=== PATIENT | male | born 1970 | race Caucasian/White ===

== ENCOUNTER 2018-04-19 06:03 | Emergency (ER) | payer SELFPAY ==
[2018-04-19 06:25] VITALS: TEMP 97.6; BMI 34.7
--- NOTE | 2018-04-19 07:06 | PDOC ---
History of Present Illness - General Chief Complaint: Nausea/Vomiting Stated Complaint: FEVER,VOMITING Time Seen by Provider: 04/19/18 07:04 - History of Present Illness Initial Comments: 04/19/18 07:04 Mr. Herring is a 47 yo male w/ pmh of DM who presents for evaluation of 2 day history of nausea, vomiting, diarrhea with subjective fevers and pain on swallowing. He reports he has recently come up from [facility] 1 week ago and that no one else around him is sick. He takes metformin for his diabetes only. He typically checks his blood glucose daily but left his BGM at home. Denies any sick contacts. The patient denies chest pain, shortness of breath, headache and dizziness. Denies dysuria, frequency, urgency and hematuria. Allergies: NKDA Past History - Past Medical History Allergies/Adverse Reactions: Allergies Allergy/AdvReac Type Severity Reaction Status Date / Time No Known Allergies Allergy Verified 04/19/18 06:20 Home Medications: Ambulatory Orders Linagliptin/Metformin HCl [Jentadueto 2.5 mg-1000 mg Tab] 1 tab PO BID 04/19/18 - Suicide/Smoking/Psychosocial Hx Smoking History: Never smoked Have you smoked in the past 12 months: No Information on smoking cessation initiated: No Hx Alcohol Use: No Drug/Substance Use Hx: No Review of Systems - Review of Systems Comments:: 04/19/18 07:06 GENERAL/CONSTITUTIONAL: +Intermittent fever. No weakness. HEAD, EYES, EARS, NOSE AND THROAT: No change in vision. No ear pain or discharge. No sore throat. CARDIOVASCULAR: No chest pain or shortness of breath RESPIRATORY: No cough, wheezing, or hemoptysis. GASTROINTESTINAL: +N/V/D as described. No constipation. GENITOURINARY: No dysuria, frequency, or change in urination. MUSCULOSKELETAL: No joint or muscle swelling or pain. No neck or back pain. SKIN: No rash NEUROLOGIC: No headache, vertigo, loss of consciousness, or change in strength/ sensation. ENDOCRINE: No increased thirst. No abnormal weight change HEMATOLOGIC/LYMPHATIC: No anemia, easy bleeding, or history of blood clots. ALLERGIC/IMMUNOLOGIC: No hives or skin allergy. *Physical Exam - Vital Signs Last Vital Signs Temp Pulse Resp BP Pulse Ox 97.6 F 104 H 20 154/104 97 04/19/18 06:05 04/19/18 06:05 04/19/18 06:05 04/19/18 06:05 04/19/18 06:05 - Physical Exam Comments: 04/19/18 07:06 GENERAL: Awake, alert, and fully oriented, in no acute distress HEAD: No signs of trauma, normocephalic, atraumatic EYES: PERRLA, EOMI, sclera anicteric, conjunctiva clear ENT: Auricles normal inspection, hearing grossly normal, nares patent, oropharynx clear without exudates. Moist mucosa NECK: Normal ROM, supple, no lymphadenopathy, JVD, or masses LUNGS: No distress, speaks full sentences, clear to auscultation bilaterally HEART: +Mild tachycardia noted. Regular rhythm, normal S1 and S2, no murmurs, rubs or gallops, peripheral pulses normal and equal bilaterally. ABDOMEN: Soft, nontender, normoactive bowel sounds. No guarding, no rebound. No masses EXTREMITIES: Normal inspection, Normal range of motion, no edema. No clubbing or cyanosis. NEUROLOGICAL: Cranial nerves II through XII grossly intact. Normal speech, normal gait, no focal sensorimotor deficits SKIN: Warm, Dry, normal turgor, no rashes or lesions noted. ED Treatment Course - LABORATORY CBC & Chemistry Diagram: 04/19/18 07:00 04/19/18 07:00 - ADDITIONAL ORDERS Additional order review: Laboratory Results 04/19/18 06:42 POC Glucometer [id number] 04/19/18 06:42 POC Glucometer 215.60688 Medical Decision Making - Medical Decision Making 04/19/18 07:23 Mr. Herring is a 47 yo male w/ pmh of DM who presents for evaluation of symptoms concerning for viral illness. Flu/Strep swab performed as well as basic labs for evaluation. Fluids/zofran given for symptomatic relief. 04/19/18 09:16 Patient flu / strep cultures negative. 04/19/18 09:37 Labs consistent with viral illness as below. No concern for acute process at this time. Discharging to home with instructions to f/u with pcp for further evaluation. Laboratory Results - last 24 hr 04/19/18 04/19/18 04/19/18 06:42 07:00 07:00 WBC 11.2 H RBC 5.44 Hgb 16.4 Hct 47.7 MCV 87.8 MCH 30.2 MCHC 34.4 RDW 13.3 Plt Count 270 MPV 7.9 Absolute Neuts (auto) 9.9 Neutrophils % 88.2 H Lymphocytes % 5.4 L Monocytes % 6.2 Eosinophils % 0.0 Basophils % 0.2 Nucleated RBC % 0 Sodium 139 Potassium 4.3 Chloride 103 Carbon Dioxide 24 Anion Gap 12 BUN 11 Creatinine 0.9 Creat Clearance w eGFR > 60 POC Glucometer 215.38187 Random Glucose 221 H Calcium 9.0 Total Bilirubin 0.5 AST 27 ALT 45 Alkaline Phosphatase 99 Total Protein 8.3 H Albumin 4.1 *DC/Admit/Observation/Transfer Diagnosis at time of Disposition: Viral illness - Discharge Dispostion Disposition: HOME - Referrals Referrals: [facility] [place] [facility] [place] [Provider Group] - Patient Instructions Printed Discharge Instructions: DI for Viral Gastroenteritis -- Adult Additional Instructions: Please follow-up with primary care provider for further evaluation. Return to ER if any pain, fevers, chills, or other concerning symptoms. Print Language: UGAND[place] - Post Discharge Activity
[2018-04-19] MEDS ORDERED: SODIUM CHLORIDE 1,000 ML IV STA (07:16)
[2018-04-19] MEDS ORDERED: ONDANSETRON 4 MG/2 ML VIAL IVPUSH ONE (07:16)
--- NOTE | 2018-04-19 07:30 | PDOC ---
Attending Attestation - Resident Resident Name: Jose Alfredo Still - ED Attending Attestation I have performed the following: I have examined & evaluated the patient, The case was reviewed & discussed with the resident, I agree w/resident's findings & plan, Exceptions are as noted - HPI HPI: 04/19/18 07:30 47y F hx of NIDDM presents with complaint of nbnb vomiting (x 2, food contents) and diarrhea (no melena/bpr, watery brown) x 2 days without associated fever/ chills, abdominal pain, dysuria, cp, sob, cough. pt ontes some pain in his b/l ears and in his throat. no sick contacts, pt travelling from [facility] (came last week). no recent abx. - Physicial Exam PE: 04/19/18 07:48 GENERAL: The patient is awake, alert, and fully oriented, Nontoxic - in no acute distress. HEAD: Normocephalic, atraumatic. EYES: extraocular movements intact, sclera anicteric, conjunctiva clear. ENT: Normal voice, dry mucous membranes. NECK: Normal range of motion, supple LUNGS: Breath sounds equal, clear to auscultation bilaterally. No wheezes, no rhonchi, no rales. HEART: slightly tachcyardic, normal S1 and S2 without murmur, rub or gallop. ABDOMEN: Soft, nontender, normoactive bowel sounds. No guarding, no rebound. . No CVA tenderness EXTREMITIES: Normal range of motion, no edema. No clubbing or cyanosis. No cords, erythema, or tenderness. NEUROLOGICAL: No facial assymetry, Normal speech, PSYCH: Normal mood, normal affect. SKIN: Warm, Dry, normal turgor - Medical Decision Making 04/19/18 07:49 suspect his sypmtoms secomndary to viral syndrome will ck basic labs to r/o metabolic derangement, anemia fluids, zofran will reassess 04/19/18 10:49 Pt feeling improved labs reivewed and unremarkble vitals improved will dc wiht pmd fu supportive care at home I discussed the physical exam findings, ancillary test results and final diagnoses with the patient. I answered all of the patient's questions. The patient was satisfied with the care received and felt comfortable with the discharge plan and treatment plan. The patient will call their primary care physician within 24 hours to arrange follow-up and will return to the Emergency Department with any new, persistent or worsening symptoms.
[2018-04-19] MEDS ORDERED: ONDANSETRON 4 MG/2 ML VIAL ONE (07:56)
[2018-04-19 08:38] LABS: BASO % 0.2 % (0-2.0); HEMATOCRIT 47.7 % (35.4-49); HEMOGLOBIN 16.4 GM/dL (11.7-16.9); LYMPH % 5.4 % (8-40); MCH 30.2 pg (25.7-33.7); MCHC 34.4 g/dl (32.0-35.9); MEAN CELL VOLUME 87.8 fl (80-96); MEAN PLT VOLUME 7.9 fl (7.5-11.1); MONO % 6.2 % (3.8-10.2); NEUT % 88.2 % (42.8-82.8); PLATELET COUNT 270 K/MM3 (134-434); RBC 5.44 M/mm3 (4.00-5.60); RDW 13.3 % (11.9-15.9); WHITE BLOOD COUNT 11.2 K/mm3 (4.0-10.0)
[2018-04-19 09:11] LABS: CHLORIDE 103 mmol/L (98-107); POTASSIUM 4.3 mmol/L (3.5-5.1); SODIUM 139 mmol/L (136-145)
[2018-04-19 09:34] LABS: ALBUMIN 4.1 g/dl (3.4-5.0); ALK PHOS 99 U/L (45-117); ANION GAP 12 (8-16); BILIRUBIN,TOTAL 0.5 mg/dL (0.2-1.0); BLOOD UREA NITROGEN 11 mg/dL (7-18); CO2 24 mmol/L (21-32); CREATININE 0.9 mg/dL (0.7-1.3); GLUCOSE,RANDOM 221 mg/dL (74-106); SGOT/AST 27 U/L (15-37); SGPT/ALT 45 U/L (12-78); TOT PROT 8.3 g/dl (6.4-8.2)
[2018-04-19 10:57] VITALS: BP 141/85; PULSE 94
== END 2018-04-19 11:30 | disposition home or self-care (01) ==
LOC: JER 06:03
PROC: 3E033GC Introduction of Other Therapeutic Substance into Peripheral Vein, Percutaneous Approach (ICD-10-PCS; principal; 2018-04-19)
DX: A08.4 Viral intestinal infection, unspecified (principal); B97.89 Other viral agents as the cause of diseases classified elsewhere; E11.9 Type 2 diabetes mellitus without complications; Z79.84 Long term (current) use of oral hypoglycemic drugs
CPT/HCPCS: 36415; 80053; 82962; 85025; 87070; 87077; 87430; 87804; 99285-25; J7030